=== PATIENT | female | born 1995 | race Caucasian/White ===

== ENCOUNTER 2018-04-12 05:07 | Emergency (ER) | payer SELFPAY ==
[~2018-04-12] VITALS: Ht 157.5 cm; Wt 57.7 kg
--- NOTE | 2018-04-12 05:21 | NUR ---
PT SLEEPING IN BED, FRIEND AT BEDSIDE, VSS
--- NOTE | 2018-04-12 05:53 | NUR ---
pt responding to voice, vss.
[2018-04-12 06:30] VITALS: BP 103/65
--- NOTE | 2018-04-12 06:31 | NUR ---
pt more alert, responds to voice, dc'd own npa, no complaints
== END 2018-04-12 08:41 | disposition home or self-care (01) ==
LOC: ED 08:35
DX: F10.120 Alcohol abuse with intoxication, uncomplicated (principal)
CPT/HCPCS: 99283